=== PATIENT | male | born 1985 | race Caucasian/White ===

== ENCOUNTER 2017-03-21 16:27 | Emergency (ER) | payer SELFPAY ==
--- NOTE | 2017-03-21 16:29 | ED Physician Chart ---
Chief Complaint/HPI - Patient Information Date Seen:: 03/21/17 Time Seen:: 16:29 Chief Complaint:: cough History of Present Illness:: 31 year-old male otherwise healthy, complains of acute, severe, nonproductive, worse at night, cough 3 days. Has associated headache with coughing also associated hearing. Denies fevers, chest pain, palpitations, nausea, vomiting, abdominal pain, dysuria, acute vision changes. Historian:: Patient Review:: Nurse's Note Reviewed Review of Systems - Review of Systems Other: Complete system review otherwise unremarkable except as noted in history of present illness. Past Medical History - Past Medical History Past Medical History: No significant medical hx Family History: None Social History: Non Smoker, No Alcohol, No Drug Use, Employed Surgical History: None Psychiatricy History: None Medication: None Family Medical History - Family Member Mother Ethnicity: Living Status: Still Living Hx Family Cancer: No Hx Family Coronary Artery Disease: No Hx Family Congestive Heart Failure: No Hx Family Hypertension: No Hx Family Stroke: No Hx Family Diabetes: Yes Physical Exam - Physical Examination Other:: INITIAL VITAL SIGNS: Reviewed by me GENERAL: Alert and interactive. No acute distress HEAD: Head is normocephalic and atraumatic EYES: EOMI. PERRL. No scleral icterus. No conjunctival injection ENT: Moist mucous membranes. NECK: Supple. Bilateral cervical adenopathy. Full range of motion RESPIRATORY: No tachypnea. Prolonged expiratory phase bilaterally with cough on inspiration. No wheezing, rales, or rhonchi CV: Regular rate and rhythm. No murmurs, rubs, or gallops ABDOMEN: Soft, non-distended, non-tender. No guarding. No rebound. No masses. EXTREMITIES: No deformity. No cyanosis. No edema. SKIN: Warm and dry. No obvious rashes. NEUROLOGIC: Alert and oriented. Face is symmetric. Speech is normal. Moves all extremities equally. Motor and sensory distally intact. Labs/Radiology/EKG Results - Lab Results Results: Lab Results 03/21/17 03/21/17 03/21/17 Range/Units 17:04 17:04 17:04 WBC 6.0 (4.8-10.8) Th/cmm RBC 5.63 (4.30-5.70) Mil/cmm Hgb 17.3 (13.2-17.3) gm/dL Hct 51.5 H (39.0-49.0) % MCV 91.4 (80-99) fl MCH 30.8 H (26.0-30.0) pg MCHC Differential 33.7 (28.0-36.0) pg RDW 12.8 (11.5-20.0) % Plt Count 177 (150-400) Th/cmm MPV 6.9 fl Neutrophils % 47.5 (40.0-80.0) % Lymphocytes % 34.0 (20.0-50.0) % Monocytes % 14.4 H (2.0-10.0) % Eosinophils % 3.7 (0.0-5.0) % Basophils % 0.4 (0.0-2.0) % Sodium 135 L (136-145) mEq/L Potassium 3.9 (3.5-5.1) mEq/L Chloride 108 H (98-107) mEq/L Carbon Dioxide 21.6 (21.0-31.0) mEq/L Anion Gap 9.3 (7.0-16.0) BUN 17 (7-25) mg/dL Creatinine 0.9 (0.7-1.3) mg/dL Est GFR ( Amer) > 60.0 (>90) ml/min Est GFR (Non-Af Amer) > 60.0 ml/min BUN/Creatinine Ratio 18.9 Glucose 103 (70-105) mg/dL Whole Bld Lactic Acid 0.90 (0.60-1.99) mmol/L Calcium 10.1 (8.6-10.3) mg/dL Total Bilirubin 0.6 (0.3-1.0) mg/dL AST 22 (13-39) U/L ALT 20 (7-52) U/L Alkaline Phosphatase 100 (34-104) U/L Total Protein 8.0 (6.0-8.3) gm/dL Albumin 4.9 (4.2-5.5) gm/dL Globulin 3.1 gm/dL Albumin/Globulin Ratio 1.6 (1.0-1.8) - Radiology Results Results: Single AP VIEW Portable Chest X-ray was interpreted independently and contemporaneously by Valentine Dalton MD: No cardiomegaly Normal mediastinum No lung infiltrates No pneumothorax No soft tissue or bony abnormalities - EKG Interpretations Comments:: 12-lead EKG Interpretation by Valentine Dalton MD: Normal Sinus Rhythm with ventricular rate of 60 beats per minute Normal axis Normal intervals No acute ST or T wave changes. No obvious STEMI ED Septic Shock - . Is Septic Shock (SBP<90, OR Lactate>4 mmol\L) present?: No Reassessment (Disposition) - Reassessment Reassessment:: Patient has acute cough due to acute bronchitis. Given severity of symptoms we' ll prescribe antibiotics. Labs essentially unremarkable. Imaging unremarkable. Also will give prednisone, Tessalon Perles, antitussive cough syrup. Albuterol inhaler. Recommend follow-up primary care 1-2 days. Return to ER precautions given. Patient says he understands and agrees the plan. Reassessment Condition:: Improved - Diagnosis Diagnosis:: Acute cough due to acute bronchitis - Aftercare/Follow up Instructions Aftercare/Follow-Up Instructions:: Counseled pt regarding lab results/diagnosis & need follow up, Refer to Discharge Instructions Medication Prescribed:: Azithromycin Prednisone Tessalon Perles Albuterol inhaler Promethazine with codeine - Patient Disposition Discharge/Transfer:: Home Time:: 17:49 Condition at Disposition:: Improved ED Discharge Plan - Patient Disposition Admit/Discharge/Transfer: PT DISCHARGED HOME Condition at Disposition: Improved Instructions: Bronchitis, [id number] Accepting Physician: , Primary [Other]
[2017-03-21] MEDS ORDERED: Dexamethasone Sodium Phos 10 mg/mL PF Vial ONE (17:08)
[2017-03-21] MEDS ORDERED: Albuterol/Ipratropium Neb 3 ML AERS HHN ONE (17:10)
[2017-03-21 17:11] LABS: % BASOPHILS 0.4 % (0.0-2.0); % EOSINOPHILS 3.7 % (0.0-5.0); % MONOCYTES 14.4 % (2.0-10.0); % NEUTROPHILS 47.5 % (40.0-80.0); HEMATOCRIT 51.5 % (39.0-49.0); HEMOGLOBIN 17.3 gm/dL (13.2-17.3); MEAN CELL VOLUME 91.4 fl (80-99); MEAN CORPUSCULAR HEMOGLOBIN 30.8 pg (26.0-30.0); MEAN CORPUSCULAR HGB CONC 33.7 pg (28.0-36.0); MEAN PLATELET VOLUME 6.9 fl; NEUTROPHILE ABSOLUTE 2.9 Th/cmm (1.8-8.0); PLATELET COUNT 177 Th/cmm (150-400); RED BLOOD COUNT 5.63 Mil/cmm (4.30-5.70); RED CELL DISTRIBUTION WIDTH 12.8 % (11.5-20.0)
[2017-03-21] MEDS: Dexamethasone Sodium Phos 4 mg/mL Vial IM STA (17:15)
[2017-03-21] MEDS: Albuterol/Ipratropium Neb 3 ML AERS HHN ONE (17:17)
[2017-03-21 17:25] LABS: PROTHROMBIN TIME (TEST) 10.4 SECONDS (9.5-11.5)
[2017-03-21 17:29] LABS: ALB/GLOB RATIO 1.6 (1.0-1.8); ALKALINE PHOSPHATASE 100 U/L (34-104); ANION GAP 9.3 (7.0-16.0); BILIRUBIN,TOTAL 0.6 mg/dL (0.3-1.0); BUN - UREA NITROGEN 17 mg/dL (7-25); BUN/CREATININE RATIO 18.9; CALCIUM SERUM 10.1 mg/dL (8.6-10.3); CARBON DIOXIDE 21.6 mEq/L (21.0-31.0); CHLORIDE 108 mEq/L (98-107); CREATININE - SERUM 0.9 mg/dL (0.7-1.3); GLUCOSE 103 mg/dL (70-105); POTASSIUM SERUM 3.9 mEq/L (3.5-5.1); SGOT 22 U/L (13-39); SGPT/ALT 20 U/L (7-52); SODIUM SERUM 135 mEq/L (136-145)
--- NOTE | 2017-03-22 09:48 | Diagnostic Imaging Report ---
CHEST X-RAY: AP view INDICATION: Cough COMPARISON: None FINDINGS: Suboptimal lung markings are noted. Mild increased interstitial lung markings are noted. No focal Consolidation or pleural effusions. There is subtle 1 cm opacity of the left upper lung zone. Heart size is normal. Degenerative changes of the spine are noted. IMPRESSION: Suboptimal lung volumes and mild increased interstitial lung markings. No focal consolidation identified. Subtle 1 cm opacity of the left upper lung zone. Findings is suggestive of superimposition of bronchovascular structures, however, a follow-up exam including apical lordotic x-ray views or alternatively CT of the chest is recommended to rule out the less likelihood of a pulmonary nodule.
--- NOTE | 2017-03-22 12:00 | General Progress Note ---
Subjective - Review of Systems Service Date: 03/22/17 Events since last encounter: 03/22/17 at 11;50am called pt phone [phone] and left message regarding cxr concern for nodule. advised pt discuss w pmd and get repeat cxr. may call ed for further advice prn -wdavide Objective - Results Result Diagrams: 03/21/17 17:04 03/21/17 17:04 Recent Labs: Laboratory Last Values WBC 6.0 Th/cmm (4.8-10.8) 03/21/17 17:04 RBC 5.63 Mil/cmm (4.30-5.70) 03/21/17 17:04 Hgb 17.3 gm/dL (13.2-17.3) 03/21/17 17:04 Hct 51.5 % (39.0-49.0) H 03/21/17 17:04 MCV 91.4 fl (80-99) 03/21/17 17:04 MCH 30.8 pg (26.0-30.0) H 03/21/17 17:04 MCHC Differential 33.7 pg (28.0-36.0) 03/21/17 17:04 RDW 12.8 % (11.5-20.0) 03/21/17 17:04 Plt Count 177 Th/cmm (150-400) 03/21/17 17:04 MPV 6.9 fl 03/21/17 17:04 Neutrophils % 47.5 % (40.0-80.0) 03/21/17 17:04 Lymphocytes % 34.0 % (20.0-50.0) 03/21/17 17:04 Monocytes % 14.4 % (2.0-10.0) H 03/21/17 17:04 Eosinophils % 3.7 % (0.0-5.0) 03/21/17 17:04 Basophils % 0.4 % (0.0-2.0) 03/21/17 17:04 PT 10.4 SECONDS (9.5-11.5) 03/21/17 17:04 INR 1.00 (0.5-1.4) 03/21/17 17:04 PTT (Actin FS) 26.5 SECONDS (26.0-38.0) 03/21/17 17:04 Sodium 135 mEq/L (136-145) L 03/21/17 17:04 Potassium 3.9 mEq/L (3.5-5.1) 03/21/17 17:04 Chloride 108 mEq/L (98-107) H 03/21/17 17:04 Carbon Dioxide 21.6 mEq/L (21.0-31.0) 03/21/17 17:04 Anion Gap 9.3 (7.0-16.0) 03/21/17 17:04 BUN 17 mg/dL (7-25) 03/21/17 17:04 Creatinine 0.9 mg/dL (0.7-1.3) 03/21/17 17:04 Est GFR ( Amer) > 60.0 ml/min (>90) 03/21/17 17:04 Est GFR (Non-Af Amer) > 60.0 ml/min 03/21/17 17:04 BUN/Creatinine Ratio 18.9 03/21/17 17:04 Glucose 103 mg/dL (70-105) 03/21/17 17:04 Whole Bld Lactic Acid 0.90 mmol/L (0.60-1.99) 03/21/17 17:04 Calcium 10.1 mg/dL (8.6-10.3) 03/21/17 17:04 Total Bilirubin 0.6 mg/dL (0.3-1.0) 03/21/17 17:04 AST 22 U/L (13-39) 03/21/17 17:04 ALT 20 U/L (7-52) 03/21/17 17:04 Alkaline Phosphatase 100 U/L (34-104) 03/21/17 17:04 Total Protein 8.0 gm/dL (6.0-8.3) 03/21/17 17:04 Albumin 4.9 gm/dL (4.2-5.5) 03/21/17 17:04 Globulin 3.1 gm/dL 03/21/17 17:04 Albumin/Globulin Ratio 1.6 (1.0-1.8) 03/21/17 17:04 - Physical Exam Vitals and I&O: Vital Signs Temp 97.2 F 03/21/17 17:37 Pulse 80 03/21/17 17:37 Resp 18 03/21/17 17:37 BP 110/68 03/21/17 17:37 Pulse Ox 96 03/21/17 17:37 Intake & Output 03/21/17 03/22/17 03/22/17 18:59 06:59 18:59 Weight (lbs) 136.078 kg
== END 2017-03-21 18:09 | disposition home or self-care (01) ==
LOC: ER 16:27
DX: J20.9 Acute bronchitis, unspecified (principal)
CPT/HCPCS: 36415-UA; 71010-TC; 80053-TC; 83605; 85025-TC; 85610-TC; 85730-TC; 93005; 94640; J1885

== ENCOUNTER 2017-08-27 11:14 | Emergency (ER) | payer MEDICAID ==
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
[2017-08-27 12:14] LABS: % BASOPHILS 1.2 % (0.0-2.0); % EOSINOPHILS 3.1 % (0.0-5.0); % LYMPHOCYTES 22.1 % (20.0-50.0); % MONOCYTES 5.3 % (2.0-10.0); % NEUTROPHILS 68.3 % (40.0-80.0); HEMOGLOBIN 15.8 gm/dL (12-16); MEAN CELL VOLUME 92.9 fl (80-99); MEAN CORPUSCULAR HEMOGLOBIN 31.9 pg (26.0-30.0); MEAN CORPUSCULAR HGB CONC 34.4 pg (28.0-36.0); MEAN PLATELET VOLUME 6.3 fl; NEUTROPHILE ABSOLUTE 7.6 Th/cmm (1.8-8.0); RED BLOOD COUNT 4.96 Mil/cmm (4.30-5.70); RED CELL DISTRIBUTION WIDTH 12.6 % (11.5-20.0)
[2017-08-27 12:19] LABS: PLATELET COUNT 258 Th/cmm (150-400)
[2017-08-27 12:27] LABS: ANION GAP 7.2 (7.0-16.0); BUN - UREA NITROGEN 11 mg/dL (7-25); BUN/CREATININE RATIO 13.8; CALCIUM SERUM 8.9 mg/dL (8.6-10.3); CARBON DIOXIDE 27.6 mEq/L (21.0-31.0); CHLORIDE 101 mEq/L (98-107); CREATININE - SERUM 0.8 mg/dL (0.7-1.3); GLUCOSE 108 mg/dL (70-105); INR 0.93 (0.5-1.4); POTASSIUM SERUM 3.8 mEq/L (3.5-5.1); PROTHROMBIN TIME (TEST) 9.7 SECONDS (9.5-11.5); SODIUM SERUM 132 mEq/L (136-145)
--- NOTE | 2017-08-28 08:10 | Diagnostic Imaging Report ---
Exam: Lumbar cervical spine. HISTORY: Low back pain. Findings Multiple views lumbar sacral spine reviewed. The study demonstrates vertebral bodies of normal height with preserved intervertebral disc spaces. There is no evidence of spondylolysis or spondylolysis. No prevertebral soft tissue swelling is noted. IMPRESSION: Normal lumbar sacral spine.
== END 2017-08-27 13:11 | disposition home or self-care (01) ==
LOC: ER 11:14
DX: S30.0XXA Contusion of lower back and pelvis, initial encounter (principal); F17.200 Nicotine dependence, unspecified, uncomplicated; X58.XXXA Exposure to other specified factors, initial encounter; Y93.89 Activity, other specified; Y92.89 Other specified places as the place of occurrence of the external cause; Y99.8 Other external cause status
CPT/HCPCS: 99285; 96374; 72110; 36415; 85025; 85610; 80048; J1885

== ENCOUNTER 2018-07-31 13:15 | Emergency (ER) | payer MEDICAID ==
[2018-07-31 13:57] LABS: URINE SOURCE MIDSTREAM
[2018-07-31 13:58] LABS: URINE BILIRUBIN SMALL (NEGATIVE); URINE BLOOD NEGATIVE (NEGATIVE); URINE GLUCOSE (UA) NEGATIVE (NEGATIVE); URINE KETONE TRACE mg/dL (NEGATIVE); URINE LEUKOCYTE ESTERASE NEGATIVE (NEGATIVE); URINE NITRATE NEGATIVE (NEGATIVE); URINE PROTEIN 30 mg/dL (NEGATIVE); URINE UROBILINOGEN 0.2 E.U./dL (0.2 - 1.0)
[2018-07-31 14:04] LABS: URINE CLARITY HAZY (CLEAR); URINE COLOR ORANGE; URINE MICROSCOPIC INDICATED? YES
[2018-07-31 14:22] LABS: URINE RBC 0-2 /hpf (0-5)
[2018-07-31 14:23] LABS: URINE BACTERIA 1+ /hpf (NONE SEEN); URINE EPITHELIAL CELLS FEW /lpf (FEW); URINE FINE GRANULAR CAST 0-2 /lpf (NONE SEEN)
--- NOTE | 2018-07-31 16:05 | ED Physician Chart ---
ED Chief Complaint/HPI - Patient Information Date Seen:: 07/31/18 Time Seen:: 13:30 Chief Complaint:: Dysuria History of Present Illness:: onset x 3 days of dysuria, myalgias, and intermittent jaw pain and MS type leg pain which resolved upon ER arrival; pt denies trauma, LOC, ALOC, AMS, H/As, S/T , neck pain, cough, C/P, SOB, Abd. Pain, A/N/V/D/C, fever, chills, bleeding, weakness, dizziness, paresthesias, or vertigo; pt is eating and is urinating well; pt last urinated one hour [employer] Allergies:: Allergies Allergy/AdvReac Type Severity Reaction Status Date / Time No Known Allergies Allergy Verified 03/21/17 16:47 Vitals:: Vital Signs - 8 hr 07/31/18 07/31/18 13:31 14:31 Temp 98.5 F HR 96 RR 16 BP 164/102 128/88 O2 Sat % 95 Historian:: Patient Review:: Nurse's Note Reviewed ED Review of Systems - Review of Systems General/Constitutional: No fever, No chills, No weight loss, No weakness, No diaphoresis, No edema, No loss of appetite Skin: No skin lesions, No rash, No bruising Head: No headache, No light-headedness Eyes: No loss of vision, No pain, No diplopia ENT: No earache, No nasal drainage, No sore throat, No tinnitus Neck: No neck pain, No swelling, No thyromegaly, No stiffness, No mass noted Cardio Vascular: No chest pain, No palpitations, No PND, No orthopnea, No edema Pulmonary: No SOB, No cough, No sputum, No wheezing GI: No nausea, No vomiting, No diarrhea, No pain, No melena, No hematochezia, No constipation, No hematemesis G/U: Dysuria, No frequency, No hematuria, No nacturia Musculoskeletal: No bone or joint pain, No back pain, No muscle pain Endocrine: No polyuria, No polydipsia Psychiatric: No prior psych history, No depression, Anxiety, No suicidal ideation, No homicidal ideation, No auditory hallucination, No visual hallucination Hematopoietic: No bruising, No lymphadenopathy Allergic/Immuno: No urticaria, No angioedema Neurological: No syncope, No focal symptoms, No weakness, No paresthesia, No headache, No seizure, No dizziness, No confusion, No vertigo ED Past Medical History - Past Medical History Obtainable: Yes Past Medical History: No significant medical hx Family History: Diabetes Melitus, HTN Social History: Smoker, Alcohol, No Drug Use Surgical History: other (Abdominal Surgery) Psychiatricy History: None Medication: Reviewed Family Medical History - Family Member Mother History Unknown: Yes Ethnicity: Living Status: Still Living Hx Family Cancer: No Hx Family Coronary Artery Disease: No Hx Family Congestive Heart Failure: No Hx Family Hypertension: No Hx Family Stroke: No Hx Family Diabetes: Yes Other Medical History: mother has diabetes ED Physical Exam - Physical Examination General/Constitutional: Awake, Well-developed, well-nourished, Alert, No distress, GCS 15, Non-toxic appearing, Ambulatory Head: Atraumatic Eyes: Lids, conjuctiva normal, PERRL, EOMI Other Eyes comments:: PERRLA; Fundi: benign; EOMs: WNL Skin: Nl inspection, No rash, No skin lesions, No ecchymosis, Well hydrated, No lymphadenopathy ENMT: External ears, nose nl, TM canals nl, Nasal exam nl, Lips, teeth, gums nl , Oropharynx nl, Tonsils nl Other ENMT comments:: TMJs: mild tenderness; no loss of ROMs; good motor and sensory functions; good NV functions Neck: Nontender, Full ROM w/o pain, No JVD, No nuchal rigidity, No bruit, No mass, No stridor Other Neck comments:: supple; no meningeal signs; no cervical tenderness; no bruits Respiratory: Nl effort/Exclusion, Clear to Auscultation, No Wheeze/Rhonchi/Rales Cardio Vascular: RRR, No murmur, gallop, rubs, NL S1 S2, Carotid/Femoral/Distal pulses equal bilaterally GI: No tenderness/rebounding/guarding, No organomegaly, No hernia, Normal BS's, Nondistended, No mass/bruits, No McBurney tenderness, Rectum exam nl Other GI comments:: no pulsatile masses : No CVA tenderness Other comments:: Deferred by pt Extremities: No tenderness or effusion, Full ROM, normal strength in all extremities, No edema, Normal digits & nails Other Extremities comments:: no calf tenderness; - Harvinder's sign Neuro/Psych: Alert/oriented, DTR's symmetric, Normal sensory exam, Normal motor strength, Judgement/insight normal, Mood normal, Normal gait, No focal deficits Other Neuro/Psych comments:: no focal signs Misc: Normal back, No paraspinal tenderness ED Labs/Radiology/EKG Results - Lab Results Results: Laboratory Tests 07/31/18 07/31/18 13:50 13:59 POC Glucose 102 Urine Source [place] Urine Color ORANGE Urine Clarity HAZY Urine pH 6.0 Ur Specific [place] >= 1.030 Urine Protein 30 H Urine Glucose (UA) NEGATIVE Urine Ketones TRACE Urine Blood NEGATIVE Urine Nitrate NEGATIVE Urine Bilirubin SMALL H Urine Urobilinogen 0.2 Ur Leukocyte Esterase NEGATIVE Urine RBC 0-2 H Urine WBC 2-5 Ur Epithelial Cells FEW Urine Bacteria 1+ H Fine Granular Casts 0-2 H Urine Mucus MODERATE Comments:: Reviewed - Radiology Results Comments:: deferred by pt ED Septic Shock - . Is Septic Shock (SBP<90, OR Lactate>4 mmol\L) present?: No - <6hrs of presentation: Vital Signs: Vital Signs - 8 hr 07/31/18 07/31/18 13:31 14:31 Temp 98.5 F HR 96 RR 16 BP 164/102 128/88 O2 Sat % 95 ED Reassessment (Disposition) - Reassessment Reassessment:: pt tolerated po fluids well in ER; pt is asymptomatic upon discharge Reassessment Condition:: Improved - Diagnosis Diagnosis:: Dx: UTI; Anxiety Reaction; Hyperventilation Syndrome; TMJ Syndrome; Dysuria; Myalgias; Sprains and Strains; Leg Pains; Myalgias - Aftercare/Follow up Instructions Aftercare/Follow-Up Instructions:: Counseled pt regarding lab results/diagnosis & need follow up, Refer to Discharge Instructions, Counseled pt & family regarding lab results/diagnosis & need follow up Medication Prescribed:: Rx: Doxycycline 100mg po bid x 10 days; Tylenol 500mg po qid prn pain/fever; Encourage fluids, especially citric acid juices - Patient Disposition Discharge/Transfer:: Home Condition at Disposition:: Stable, Improved (RTER prn if existing s/s reoccur and/or get worse and/or any other new s/s occur; ACIs given for all above Dx; Refer to ENT Specialist/Urologist/Student Accounts Coordinator JONAS; F/U with PMD in one day or prn ; RTER prn if concerned)
== END 2018-07-31 16:10 | disposition home or self-care (01) ==
LOC: ER 13:15
DX: N39.0 Urinary tract infection, site not specified (principal); F41.1 Generalized anxiety disorder; F45.8 Other somatoform disorders; M26.69 Other specified disorders of temporomandibular joint; T14.8XXA Other injury of unspecified body region, initial encounter; F17.200 Nicotine dependence, unspecified, uncomplicated; X58.XXXA Exposure to other specified factors, initial encounter; Y93.89 Activity, other specified; Y92.89 Other specified places as the place of occurrence of the external cause; Y99.8 Other external cause status
CPT/HCPCS: 81001-TC; 82948-90; 87086-90; Z7502